=== PATIENT | female | born 1955 | race American Indian/Alaskan Native ===

== ENCOUNTER 2017-10-27 11:58 | Outpatient (CLI) | payer MEDICARE ==
--- NOTE | 2017-10-27 12:35 | XRay Report ---
ROUTINE CHEST, TWO VIEWS: HISTORY: Positive PPD. The trachea, heart, mediastinal contour, lung moses and bony thorax are unremarkable. IMPRESSION: Unremarkable chest x-ray.
== END 2017-10-27 11:59 | disposition home or self-care (01) ==
LOC: XRAY 11:58
PROVIDERS: ATTEND Internal Medicine
DX: R76.11 Nonspecific reaction to tuberculin skin test without active tuberculosis (principal)
CPT/HCPCS: 71020